=== PATIENT | male | born 1990 | race African-American/Black ===

== ENCOUNTER 2018-02-09 00:41 | Emergency (ER) | payer OTHER ==
[~2018-02-09] VITALS: Ht 175.3 cm; Wt 68.0 kg
[2018-02-09 00:45] VITALS: Ht 175.3 cm; Wt 68.0 kg
[2018-02-09 01:11] VITALS: BP 145/73
== END 2018-02-09 01:11 | disposition other institution (70) ==
LOC: ED 00:41
DX: Z02.89 Encounter for other administrative examinations (principal)
CPT/HCPCS: G0480